=== PATIENT | male | born 1985 | race Caucasian/White ===

== ENCOUNTER 2018-09-07 16:42 | Inpatient (IN) ==
[2018-09-07] MEDS ORDERED: CLINDAMYCIN IM ONE (18:00)
--- NOTE | 2018-09-07 18:08 | PROVIDER DOCUMENTATION ---
HPI-Musculoskeletal Pain/Inj - GENERAL Chief Complaint: Extremity Pain Stated Complaint: ELBOW SWOLLEN Time Seen by Provider: 09/07/18 17:36 Source: patient - HX OF PRESENT ILLNESS-MUSKULOSKELTAL Nature of Presenting Problem: Patient is a 33yo M who presents w/ c/o L inner elbow pain, swelling, and rednes s that he noticed this morning. Denies any known injury. 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 Patient reports decreased ROM in L elbow d/t pain. Denies paresthesias, fever/chills, CP, or SOB. +2 L radial pulse. Non- toxic in appearance. Quality of Pain: reports: throbbing Severity in ED: moderate Onset/Duration: this morning Timing: still present Modifying Factors: worse with: movement, palpation Any recent injury?: No Locality of Occurance: Home Similar Symptoms Previously?: No Recently seen or treated by another doctor?: No - UPPER EXTREMITY PAIN/INJURY Extremities Pain Location: elbow: left Context / Method of Injury: reports: unknown Associated Symptoms: reports: denies symptoms Review of Systems - Adult - REVIEW OF SYSTEMS - ADULT Constitutional: reports: no symptoms reported. denies: chills, fever Eyes: reports: no symptoms reported. denies: decreased vision, blurred vision, double vision Ears, Nose, Mouth & Throat: reports: no symptoms reported Cardiovascular: reports: no symptoms reported. denies: chest pain, palpitations Respiratory: reports: no symptoms reported. denies: cough, dyspnea on exertion, shortness of breath Gastrointestinal: reports: no symptoms reported. denies: abdominal pain, nausea, vomiting Genitourinary: reports: no symptoms reported Musculoskeletal: reports: see HPI, joint pain, joint swelling. denies: back pain Integumentary: reports: see HPI Neurological: reports: no symptoms reported. denies: dizziness/vertigo, headache/migraines Psychiatric: reports: no symptoms reported Endocrine: reports: no symptoms reported Past History - Adult - PAST MEDICAL HISTORY-ADULT Review of Records: reports: Nursing Assessment Review, Medications Reviewed - IMMUNIZATION STATUS Childhood Immunizations: See Nurse Assessment Flu Vaccine: See Nurse Assessment - FAMILY HISTORY Family History: reviewed, not pertinent - SOCIAL HISTORY Smoking: cigarettes Provider spent 3-5 mins advising pt. on dangers of tobacco.: Discussed manners to quit use, and f/u contacts for add'l counseling. Substance Use: denies Physical Exam-Injury Related - Physical Exam-Injury Related Initial Vital Signs Reviewed: Yes General Appearance: alert, mild distress. negative: lethargic, slow to respond, obtunded Eyes: PERRL/EOMI, pink conjunctivae Head, Ears, Nose, Mouth & Throat: normocephalic/atraumatic, moist mucous membranes Neck: non-tender, full range of motion, supple, normal inspection. negative: C- spine tenderness, limited range of motion Respiratory: chest non-tender, lungs clear, normal breath sounds, no pleuratic chest pain, no respiratory distress, no accessory muscle use. negative: crackles, rales, rhonchi, stridor, wheezing Cardiovascular: normal peripheral pulses, no gallop Peripheral Pulses: radial (R): 2+, radial (L): 2+ Back Exam: normal inspection, no CVA tenderness, no vertebral tenderness Extremity: normal gait, no calf tenderness, normal capillary refill, pelvis stable, erythema (L antecubital space), swelling (L antecubital space), tenderness (L antecubital space) Integumentary: normal color, warm/dry, other (erythema, edema, and warmth to L antecubital space and healing wound with scab proximal to erythema). negative: cyanosis, jaundice, pallor Neurologic: grossly normal Psych/Mental Status: normal mood/affect, normal thought content, normal thought process, oriented x 3 Progress - PLAN OF CARE/RESULTS Progress/Plan/Lab Results: Vital Signs - 8 hr 09/07/18 16:49 09/07/18 18:52 Temperature 98.3 F 100.3 F H Pulse Rate 131 H 128 H Respiratory Rate 19 24 Blood Pressure 150/80 151/85 O2 Sat by Pulse Oximetry 95 100 Laboratory Results - last 24 hr 09/07/18 09/07/18 09/07/18 19:40 19:40 19:40 WBC 24.17 H RBC 5.14 Hgb 16.5 Hct 45.3 MCV 88.1 MCH 32.1 H MCHC 36.4 RDW Std Deviation 12.6 Plt Count 301 MPV 10.0 Immature Gran % (Auto) 0.4 Neut % (Auto) 87.3 H Lymph % (Auto) 4.4 L [place] % (Auto) 7.6 Eos % (Auto) 0.1 Baso % (Auto) 0.2 Immature Gran # (Auto) 0.10 H Neut # (Auto) 21.09 H Lymph # (Auto) 1.07 L [place] # (Auto) 1.84 H Eos # (Auto) 0.03 Baso # (Auto) 0.04 Segmented Neutrophils Not Reportable PT INR PTT (Actin FS) Sodium 131 L Potassium 3.2 L Chloride 95 L Carbon Dioxide 19 L Anion Gap 17 BUN 17 Creatinine 1.0 Estimated GFR/1.73 m2 > 60 BUN/Creatinine Ratio 17 Glucose 104 Calculated Osmolality 265 Calcium 9.0 Magnesium 1.5 Total Bilirubin 1.40 H AST 37 H ALT 38 Alkaline Phosphatase 98 Creatine Kinase 673 H Troponin T Total Protein 7.8 Albumin 4.6 Globulin 3.0 Albumin/Globulin Ratio 1.0 Plasma Lactate Urine Source Urine Color Urine Clarity Urine pH Ur Specific [place] Urine Protein Urine Ketones Urine Blood Urine Nitrite Urine Bilirubin Urine Urobilinogen Urine Microscopic RBC Urine WBC Urine Microscopic WBC Ur Epithelial Cells Urine Crystals Urine Bacteria Urine Casts Urine Yeast Urine Glucose Urine Opiates Screen Ur Oxycodone Screen Urine Methadone Screen U Propoxyphene Qual Ur Barbituates Screen Ur Tricyclics Screen Ur Phencyclidine Scrn Ur Amphetamines Screen U Methamphetamines Scrn U Benzodiazepines Scrn Urine Cocaine Screen U Cannabinoids Screen 09/07/18 09/07/18 09/07/18 19:40 19:40 20:43 WBC RBC Hgb Hct MCV MCH MCHC RDW Std Deviation Plt Count MPV Immature Gran % (Auto) Neut % (Auto) Lymph % (Auto) [place] % (Auto) Eos % (Auto) Baso % (Auto) Immature Gran # (Auto) Neut # (Auto) Lymph # (Auto) [place] # (Auto) Eos # (Auto) Baso # (Auto) Segmented Neutrophils PT 14.1 INR 1.04 PTT (Actin FS) 28.7 Sodium Potassium Chloride Carbon Dioxide Anion Gap BUN Creatinine Estimated GFR/1.73 m2 BUN/Creatinine Ratio Glucose Calculated Osmolality Calcium Magnesium Total Bilirubin AST ALT Alkaline Phosphatase Creatine Kinase Troponin T < 0.010 Total Protein Albumin Globulin Albumin/Globulin Ratio Plasma Lactate 1.7 Urine Source Urine Color Urine Clarity Urine pH Ur Specific [place] Urine Protein Urine Ketones Urine Blood Urine Nitrite Urine Bilirubin Urine Urobilinogen Urine Microscopic RBC Urine WBC Urine Microscopic WBC Ur Epithelial Cells Urine Crystals Urine Bacteria Urine Casts Urine Yeast Urine Glucose Urine Opiates Screen Ur Oxycodone Screen Urine Methadone Screen U Propoxyphene Qual Ur Barbituates Screen Ur Tricyclics Screen Ur Phencyclidine Scrn Ur Amphetamines Screen U Methamphetamines Scrn U Benzodiazepines Scrn Urine Cocaine Screen U Cannabinoids Screen 09/07/18 09/07/18 21:07 21:07 WBC RBC Hgb Hct MCV MCH MCHC RDW Std Deviation Plt Count MPV Immature Gran % (Auto) Neut % (Auto) Lymph % (Auto) [place] % (Auto) Eos % (Auto) Baso % (Auto) Immature Gran # (Auto) Neut # (Auto) Lymph # (Auto) [place] # (Auto) Eos # (Auto) Baso # (Auto) Segmented Neutrophils PT INR PTT (Actin FS) Sodium Potassium Chloride Carbon Dioxide Anion Gap BUN Creatinine Estimated GFR/1.73 m2 BUN/Creatinine Ratio Glucose Calculated Osmolality Calcium Magnesium Total Bilirubin AST ALT Alkaline Phosphatase Creatine Kinase Troponin T Total Protein Albumin Globulin Albumin/Globulin Ratio Plasma Lactate Urine Source CLEAN CATCH Urine Color KAYY Urine Clarity SL. CLOUDY A Urine pH 6.5 Ur Specific [place] 1.015 Urine Protein TRACE A Urine Ketones 3+(Large) A Urine Blood NEGATIVE Urine Nitrite NEGATIVE Urine Bilirubin NEGATIVE Urine Urobilinogen 4 Urine Microscopic RBC Not Reportable Urine WBC 1+ A Urine Microscopic WBC <10 Ur Epithelial Cells <10 Urine Crystals NONE SEEN Urine Bacteria 1+ Urine Casts NONE SEEN Urine Yeast NONE SEEN Urine Glucose TRACE(50 mg/dL) A Urine Opiates Screen PRESUMPTIVE POSITIVE A Ur Oxycodone Screen NONE DETECTED Urine Methadone Screen NONE DETECTED U Propoxyphene Qual NONE DETECTED Ur Barbituates Screen NONE DETECTED Ur Tricyclics Screen NONE DETECTED Ur Phencyclidine Scrn NONE DETECTED Ur Amphetamines Screen PRESUMPTIVE POSITIVE A U Methamphetamines Scrn PRESUMPTIVE POSITIVE A U Benzodiazepines Scrn NONE DETECTED Urine Cocaine Screen PRESUMPTIVE POSITIVE A U Cannabinoids Screen PRESUMPTIVE POSITIVE A Orders Category Date Time Status Cardiac Monitoring DIRECTED Care 09/07/18 21:40 Active Notify MD of + Sepsis Screen NOW Care 09/07/18 21:40 Active Notify Physician As Ordered Care 09/07/18 21:40 Active Repeat Vital Signs .Blood Pressure Care 09/07/18 18:06 Active Repeat Vital Signs .Heart Rate Care 09/07/18 18:05 Active Saline Loc NOW Care 09/07/18 20:12 Active Wound [ED: Wound Care/Dressing Change] NOW Care 09/07/18 18:10 Active CHEST-1 VIEW [RAD] Stat Exams 09/07/18 21:40 Ordered ELBOW COMPLETE LEFT [RAD] Stat Exams 09/07/18 17:18 Completed BLOOD CULTURE [BLDCUL] Stat Lab 09/07/18 21:56 Ordered CBC WITH ELECTRONIC DIFF [HEME] Stat Lab 09/07/18 19:40 Completed CK PROFILE [SP CHEM] Stat Lab 09/07/18 19:40 Results COMPREHENSIVE METABOLIC PANEL [CHEM] Stat Lab 09/07/18 19:40 Completed LACTATE, PLASMA [CHEM] Lab 09/08/18 00:00 Uncollected LACTATE, PLASMA [CHEM] Lab 09/08/18 03:00 Uncollected LACTATE, PLASMA [CHEM] Stat Lab 09/07/18 20:43 Completed MAGNESIUM [CHEM] Stat Lab 09/07/18 19:40 Results PROTIME WITH INR [COAG] Stat Lab 09/07/18 19:40 Completed PTT [COAG] Stat Lab 09/07/18 19:40 Completed TROPONIN T Stat Lab 09/07/18 19:[address] W/POSS RFLX CULT [URINALYSIS] Stat Lab 09/07/18 21:07 Completed URINE CULTURE [RM] Routine Lab 09/07/18 21:28 Received UR[address] DRUG SCREEN [address] Stat Lab 09/07/18 21:07 Completed 0.9% Sodium Chloride Inj [Ns] 1,000 ml Med 09/07/18 22:06 Active IV 999 mls/hr Acetaminophen [Tylenol] Med 09/07/18 21:49 Discontinued 1,000 mg PO NOW ONE Clindamycin Med 09/07/18 18:00 Discontinued 600 mg IM NOW ONE Ketorolac [Toradol] Med 09/07/18 20:14 Discontinued 30 mg IM NOW ONE Potassium Chloride E.r. [Micro-K] Med 09/07/18 22:06 Discontinued 20 meq PO NOW ONE Oxygen Device Stat Oth 09/07/18 21:40 Active EKG [EKG] Stat Ther 09/07/18 21:28 Ordered Plan of care discussed with patient who verbalizes understanding. Border of erythema circled by RN. Patient denies illicit drug usage, however d/t location of wound/cellulitis in the AC and numerous positive substances on drug screen, possible concern for wound obtained via IV drug usage. Patient tachycardia in triage. Vital signs rechecked and HR 128 bpm. Mildly febrile (100.3). WBC elevated. Discussed with patient admission for IV antibiotics d/t leukocytosis and tachycardia. Patient agrees. Result Diagrams: 09/07/18 19:40 09/07/18 19:40 - XRAY 1 XRAY: Left XRAY Study: Elbow Impression: See EMR Report ([facility] - [address] , [address], [place] [address] [facility] - [address] [place] [address] Department of Imaging Patient: RAUL HAAS WADM Date: 09/07/18#: [id number] : 1985ADM Status: REG ERAt#: [id number] Age/Sex: 33/MRoom/Bed: Loc: P.ED Ordering Physician: Nel Smith Family Physician: Gwendolyn Mobley MD Reason for Procedure: pain/swelling Signed EXAM: ELBOW COMPLETE LEFT INDICATION: pain/swelling TECHNIQUE: 3 views COMPARISON: None. FINDINGS: There is no discrete fracture, dislocation, or significant intrinsic osseous lesion. The visualized joint spaces are essentially unremarkable. The surrounding soft tissues are essentially unremarkable. IMPRESSION: No evidence of acute osseous abnormality. Electronically signed by Lon Lange 09/07/2018 7:10 PM 09/07/181909 Interpreting Physician: Lon Lange MD Dictated Date/Time: 09/07/181909 cc: Nel Smith; Gwendolyn Mobley MD) - CONSULTS/PCP/HOSPITALIST Notification #1 *Consult/PCP/Hospitalist*: aNvid Shukla Time Discussed: 22:25 Reason/Comments: Cellulitis; leukocytosis; tachycardia Consult Disposition: Admit Departure - Departure Date of Disposition Decision: 09/07/18 Time of Disposition Decision: 22:29 DIAGNOSIS: Cellulitis of antecubital fossa, Tachycardia, Hyponatremia, Hypokalemia, Substance abuse Leukocytosis Qualifiers: Leukocytosis type: unspecified Qualified Code(s): D72.829 - Elevated white blood cell count, unspecified Disposition: ADMITTED INPATIENT 09 Certified Medical Emergency: Emergent Condition: Stable Referrals and Follow-Ups: Gwendolyn Mobley MD [Primary Care Provider] - - Critical Care Note This patient required my direct & personal management of CC.: No Attestation - Physician/ VIDHYA Attestation Patient care was provided by Advanced Practice Provider:: Yes Advanced Practice Provider:: Nel Smith Advanced Practice Provider documentation review:: The Mid-level provider documentation, treatment plan and medical decision making was reviewed by the physician who agrees with all treatment and medical decision making by the MLP. The physician spent face to face time with patient:: No Advanced Practice Provider documentation review:: Supervising physician onsite and consulted in the evaluation and care of this patient. The physician did not have a face to face encounter with the patient.
--- NOTE | 2018-09-07 19:12 | Diag Imaging Result Doc PS360 ---
EXAM: ELBOW COMPLETE LEFT INDICATION: pain/swelling TECHNIQUE: 3 views COMPARISON: None. FINDINGS: There is no discrete fracture, dislocation, or significant intrinsic osseous lesion. The visualized joint spaces are essentially unremarkable. The surrounding soft tissues are essentially unremarkable. IMPRESSION: No evidence of acute osseous abnormality. Electronically signed by Lon Lange 09/07/2018 7:10 PM
[2018-09-07 20:10] LABS: BASO# 0.04 X1000 (0.0-0.2); BASO% 0.2 % (0.0-0.8); EOS# 0.03 X1000 (0.0-0.7); EOS% 0.1 % (0.0-10.0); HEMATOCRIT 45.3 % (42.0-52.0); HEMOGLOBIN 16.5 g/dL (14.0-18.0); IMM GRAN% 0.4 % (0.0-0.5); LYMPH# 1.07 X1000 (1.2-3.4); LYMPH% 4.4 % (20.5-51.1); MCH 32.1 PG (27-31); MCHC 36.4 g/dL (33-37); MCV 88.1 FL (81-99); MONO# 1.84 X1000 (0.11-0.59); MONO% 7.6 % (1.7-9.3); NEUT# 21.09 X1000 (1.4-6.5); NEUT% 87.3 % (42.2-75.2); PLT 301 X1000 (130-400); RBC 5.14 XMIL (4.7-6.1); RDW 12.6 % (11.5-14.5); WBC 24.17 X1000 (4.8-10.8)
[2018-09-07] MEDS ORDERED: TORADOL IM ONE (20:14)
[2018-09-07 21:10] LABS: AGAP 17; ALBUMIN 4.6 g/dL (3.5-5.0); ALKALINE PHOSPHATASE 98 U/L (32-122); BUN 17 mg/dL (8-22); CHLORIDE 95 mmol/L (98-107); COSMO 265; ESTIMATED GFR > 60; GLUCOSE 104 mg/dL (70-104); GOT 37 U/L (10-34); GPT 38 U/L (10-44); POTASSIUM 3.2 mmol/L (3.5-5.1); SODIUM 131 mmol/L (136-145); TCO2 19 mmol/L (25-35); TOTAL PROTEIN 7.8 g/dL (6.3-8.3)
[2018-09-07 21:22] LABS: BILIRUBIN URINE NEGATIVE (NEGATIVE); BLOOD URINE NEGATIVE (NEGATIVE); CLARITY SL. CLOUDY (CLEAR); COLOR AMBER; KETONE URINE 3+(Large) mg/dL (NEGATIVE); LEUKOCYTES URINE 1+ (NEGATIVE); NITRITE URINE NEGATIVE (NEGATIVE); PH URINE 6.5; PROTEIN URINE TRACE mg/dL (NEGATIVE); SP GRAVITY URINE 1.015; UROBILINOGEN URINE 4 mg/dL
[2018-09-07 21:28] LABS: URINE BACTERIA 1+ /HFP; URINE CAST NONE SEEN /LPF; URINE CRYSTAL NONE SEEN /HPF; URINE EPITHELIAL CELLS <10 /HPF (<10); URINE SOURCE CLEAN CATCH; URINE WBC <10 /HPF (<10); URINE YEAST NONE SEEN /HPF
[2018-09-07 21:41] LABS: UR AMPHETAMINES QUAL PRESUMPTIVE POSITIVE (NONE DETECT); UR BARBITUATES QUAL NONE DETECTED (NONE DETECT); UR BENZODIAZEPIN QUAL NONE DETECTED (NONE DETECT); UR CANNABINOIDS QUAL PRESUMPTIVE POSITIVE (NONE DETECT); UR COCAINE QUAL PRESUMPTIVE POSITIVE (NONE DETECT); UR METHADONE QUAL NONE DETECTED (NONE DETECT); UR METHAMPHETAMINE QUAL PRESUMPTIVE POSITIVE (NONE DETECT); UR OPIATES QUAL PRESUMPTIVE POSITIVE (NONE DETECT); UR OXYCODONE QUAL NONE DETECTED (NONE DETECT); UR PCP QUAL NONE DETECTED (NONE DETECT); UR PROPOXYPHENE QUAL NONE DETECTED (NONE DETECT); UR TCA QUAL NONE DETECTED (NONE DETECT)
[2018-09-07] MEDS ORDERED: TYLENOL PO ONE (21:49)
[2018-09-07 21:57] LABS: INR 1.04; PROTIME 14.1 Seconds (11.0-16.0); PTT 28.7 Seconds (22.3-41.8)
[2018-09-07 22:03] LABS: MAGNESIUM 1.5 mg/dL (1.5-2.7)
[2018-09-07] MEDS ORDERED: NS 1,000 ML IV ONE (22:06)
[2018-09-07] MEDS ORDERED: MICRO-K PO ONE (22:06)
[2018-09-07 22:45] LABS: CK INDEX 0.6 (0.0-2.5); CK-MB 4.04 ng/mL (0.0-5.0)
[2018-09-07] MEDS ORDERED: TYLENOL PO PRN (23:32)
[2018-09-07] MEDS ORDERED: VANCOMYCIN 1 GM/NS 1 GM/250 ML IVPB IV ONE (23:33)
[2018-09-07] MEDS ORDERED: ZOSYN 3.375 GM in NS 50 ML IV ONE (23:33)
[2018-09-07] MEDS ORDERED: KLOR-CON PO ONE (23:34)
[2018-09-07] MEDS: NS 1,000 ML IV ONE (23:49)
[2018-09-08 03:32] LABS: BASO# 0.04 X1000 (0.0-0.2); BASO% 0.2 % (0.0-0.8); EOS% 0.8 % (0.0-10.0); HEMATOCRIT 41.8 % (42.0-52.0); HEMOGLOBIN 15.2 g/dL (14.0-18.0); IMM GRAN% 0.4 % (0.0-0.5); LYMPH# 1.04 X1000 (1.2-3.4); LYMPH% 4.4 % (20.5-51.1); MCH 32.1 PG (27-31); MCHC 36.4 g/dL (33-37); MCV 88.4 FL (81-99); MONO# 1.13 X1000 (0.11-0.59); MONO% 4.7 % (1.7-9.3); MPV 9.6 FL (7.4-10.4); NEUT# 21.36 X1000 (1.4-6.5); NEUT% 89.5 % (42.2-75.2); PLT 249 X1000 (130-400); RBC 4.73 XMIL (4.7-6.1); RDW 12.7 % (11.5-14.5); WBC 23.87 X1000 (4.8-10.8)
[2018-09-08 05:17] LABS: AGAP 15; ALKALINE PHOSPHATASE 83 U/L (32-122); BUN 25 mg/dL (8-22); CALCIUM 8.3 mg/dL (8.8-10.2); CHLORIDE 97 mmol/L (98-107); COSMO 270; CREATININE 1.3 mg/dL (0.7-1.2); ESTIMATED GFR > 60; GLUCOSE 120 mg/dL (70-104); GOT 28 U/L (10-34); GPT 30 U/L (10-44); POTASSIUM 3.6 mmol/L (3.5-5.1); SODIUM 132 mmol/L (136-145); TCO2 20 mmol/L (25-35); TOTAL PROTEIN 6.2 g/dL (6.3-8.3)
[2018-09-08] MEDS ORDERED: ZOFRAN IV PRN (06:51)
[2018-09-08] MEDS ORDERED: VANCOMYCIN IV PER PHARMACY MISC SCH (07:00)
[2018-09-08] MEDS: NORCO-10 PO PRN ×3 (07:19→21:02)
--- NOTE | 2018-09-08 07:24 | Diag Imaging Result Doc PS360 ---
EXAM: CHEST-1 VIEW - 09/07/2018 HISTORY: Sepsis TECHNIQUE: One view chest COMPARISON: None. FINDINGS: Inspiration is mildly shallow. Allowing for inspiration and the AP projection, heart size appears upper normal. The lungs appear clear. There is no pleural effusion or pneumothorax identified. IMPRESSION: Mildly shallow inspiration. No other evidence of acute disease. Electronically signed by Devin Gaxiola 09/08/2018 7:22 AM
[2018-09-08] MEDS ORDERED: VANCOMYCIN 1 GM/NS 1 GM/250 ML IVPB IV ONE (09:00)
[2018-09-08] MEDS: ZOSYN 3.375 GM in NS 50 ML IV SCH ×3 (09:13→21:03)
[2018-09-08] MEDS: NS 1,000 ML IV ONE (09:14)
[2018-09-08] MEDS: NS 1,000 ML IV SCH ×2 (10:21→15:34)
--- NOTE | 2018-09-08 11:13 | HISTORY AND PHYSICAL ---
CHIEF COMPLAINT: Pain and swelling to the left antecubital space. HISTORY OF PRESENT ILLNESS: This is a 33-year-old gentleman who presented to the emergency room complaining of left arm pain and swelling. He states that he burnt his antecubital area while welding a week ago. During this time, he has developed increasing pain, swelling and redness, prompting his evaluation. He was found to have cellulitis to this area. Elbow x-ray revealed no evidence of acute osseous abnormality. Blood cultures were drawn. He was given vancomycin and Zosyn, and admitted for further evaluation and treatment. PAST MEDICAL HISTORY: He denies. PAST SURGICAL HISTORY: Denies. SOCIAL HISTORY: He drinks alcohol daily. He does use recreational drugs "quite often". ALLERGIES: No known drug allergies. HOME MEDICATIONS: None. REVIEW OF SYSTEMS: Discussed with patient with pertinent positives stated in the HPI. He denied any syncope or dizziness, any chest pain, palpitations, shortness of breath, cough, fever, chills, any night sweats, recent weight loss or weight gain, any nausea, vomiting, diarrhea, constipation, black or bloody vomitus or stools, hematuria, dysuria, frequency or urgency. PHYSICAL EXAMINATION: GENERAL: This is a 33-year-old gentleman who is sitting up at the bedside in the med/surg room in no distress. VITAL SIGNS: Blood pressure 150/90, respirations are 17, temperature is 99.2 degrees oral with heart rates that are ranging 100 to 108. Room air sats are 98 to 100%. EYES: Pupils are equal, round, and react to light. EOMs are intact. Sclerae are anicteric. HEENT: Head is normocephalic, atraumatic. Mucous membranes are moist. NECK: Supple with trachea midline. CARDIOVASCULAR: Regular rate and rhythm. He is tachycardic. S1 and S2 appreciated. No murmurs. Calves are nontender bilateral with peripheral pulses palpable x4 extremities. PULMONARY: Breath sounds are clear. No increased work of breathing noted. Chest rises and falls symmetric respiration. Chest wall is nontender to palpation. GASTROINTESTINAL: Abdomen is soft, nontender, and nondistended. Bowel sounds in all 4 quadrants. GENITOURINARY: He has no CVA or suprapubic tenderness. NEUROLOGIC: He is alert and oriented x3. SKIN: Warm and dry. Erythema is noted and swelling to his left antecubital space with good positive PMS noted to right hand and fingers. Capillary refill is less than 10 to his left hand. Less than 3 seconds noted to his left hand. LABORATORY: WBC 24.1 with hemoglobin 16.5, hematocrit 45.3, platelets of 301,000. Sodium 131, potassium 3.2, BUN 17, creatinine 1 with a glucose of 104. Urinalysis is essentially negative. Urine drug screen is presumptive positive for opiates, amphetamines, methamphetamines, cocaine and cannabinoids. Left elbow x-ray reveals no acute osseous abnormality. Blood cultures are pending. ASSESSMENT AND PLAN: 1. Cellulitis left elbow. Blood cultures have been drawn. Vancomycin and Zosyn will be given. Further antibiotics will be culture driven. 2. History of polysubstance abuse. Urine drug screen as stated above. We will monitor on telemetry. Monitor vital signs and look for signs of withdrawal. As stated, the patient denies any IV drug use now, although he has in the past. If cultures return positive, then we will need an echocardiogram to look for endocarditis. 3. Alcohol use and abuse. He states that he drinks daily, although we are unsure when his last drink was. We will monitor for signs of any withdrawal or DTs. 4. Leukocytosis secondary to #1. We will trend labs and continue antibiotics. 5. Hyponatremia. We will continue with IV fluid. 6. Hyperkalemia resolved. Further treatments pending hospital course. Plan was discussed with Dr. Barry. Dictated by ROSA Koroma for Willian Barry MD cc: ROSA Koroma MD
[2018-09-08] MEDS: TYLENOL PO PRN (21:01)
--- NOTE | 2018-09-08 21:39 | HISTORY AND PHYSICAL ---
ADDENDUM: Patient seen and examined by myself. Full note dictated and discussed with nurse practitioner. Patient presented to the hospital with left elbow pain and swelling with erythema. He was diagnosed with cellulitis at the antecubital fossa. He was noted to have hyponatremia as well as hypokalemia. Both of these will be replaced. His white count was elevated at 23 and his urine drug screen was positive for multiple substances. We will follow the patient. He does have an early sepsis with elevated white count, tachycardia, and low grade fevers. We will admit to the hospital, IV fluids, antibiotics, pain control, and will follow. cc: Willian Barry MD
[2018-09-09] MEDS: NORCO-10 PO PRN (01:26)
[2018-09-09] MEDS: ZOSYN 3.375 GM in NS 50 ML IV SCH ×4 (01:27→21:15)
[2018-09-09] MEDS ORDERED: VANCOMYCIN 1,350 MG in NS 250 ML IV SCH (03:00)
[2018-09-09] MEDS: NS 1,000 ML IV SCH ×2 (03:22→21:16)
[2018-09-09 07:10] LABS: AGAP 11; ALBUMIN 3.1 g/dL (3.5-5.0); BUN 11 mg/dL (8-22); CALCIUM 8.1 mg/dL (8.8-10.2); CHLORIDE 104 mmol/L (98-107); COSMO 272; CREATININE 0.9 mg/dL (0.7-1.2); ESTIMATED GFR > 60; GLUCOSE 103 mg/dL (70-104); PHOSPHORUS 1.8 mg/dL (2.7-4.5); POTASSIUM 3.4 mmol/L (3.5-5.1); SODIUM 136 mmol/L (136-145); TCO2 21 mmol/L (25-35)
[2018-09-09 07:35] LABS: BASO# 0.02 X1000 (0.0-0.2); BASO% 0.1 % (0.0-0.8); EOS# 0.32 X1000 (0.0-0.7); EOS% 1.8 % (0.0-10.0); HEMATOCRIT 40.7 % (42.0-52.0); HEMOGLOBIN 14.3 g/dL (14.0-18.0); IMM GRAN# 0.06 X1000 (0.0-0.04); IMM GRAN% 0.3 % (0.0-0.5); LYMPH% 5.7 % (20.5-51.1); MCH 32.1 PG (27-31); MCHC 35.1 g/dL (33-37); MCV 91.3 FL (81-99); MONO# 0.86 X1000 (0.11-0.59); MONO% 4.9 % (1.7-9.3); MPV 10.6 FL (7.4-10.4); NEUT# 15.28 X1000 (1.4-6.5); NEUT% 87.2 % (42.2-75.2); PLT 208 X1000 (130-400); RBC 4.46 XMIL (4.7-6.1); RDW 12.9 % (11.5-14.5); WBC 17.54 X1000 (4.8-10.8)
[2018-09-09] MEDS: DILAUDID IV PRN ×4 (08:45→21:15)
[2018-09-09 09:19] LABS: LYMPHS 6 % (21-51); MONO 4 % (1-9); SEGS 90 % (42-75)
[2018-09-09] MEDS: VANCOMYCIN 1,350 MG in NS 250 ML IV SCH (16:48)
[2018-09-09] MEDS: TYLENOL PO PRN (17:28)
[2018-09-09] MEDS: NICODERM PATCH TD PRN (18:34)
--- NOTE | 2018-09-09 20:15 | PROGRESS NOTE ---
DATE: 09/09/2018 SUBJECTIVE: Patient notes that his left arm is hurting quite severely. States that he was crying some during the night. Denies any fevers or chills. PHYSICAL EXAMINATION: Vital signs: Temperature 99.1 degrees, pulse 95, respiratory rate 18, BP 131/66. General: Patient is in obvious pain. He is refusing to move his elbow unless completely necessary. HEENT: Normocephalic. Neck: Supple. Cardiovascular: Regular rate. Chest: Clear. Abdomen: Soft, nondistended. Extremities: Moves all extremities with the exception of left elbow, left upper extremity, which is swollen, red, tender and quite painful to touch. He has no other rashes noted. Neurologic: No focal changes. ASSESSMENT: 1. Cellulitis, left elbow, currently on vancomycin and Zosyn. 2. History of polysubstance abuse as noted with abnormal urine drug screen. 3. Acute renal insufficiency. Creatinine is increased to 1.3 today. This could be from his vancomycin. We will continue to follow. Recheck in the a.m. 4. Leukocytosis. 5. Chronic alcohol use. We will continue to follow. 6. Hyponatremia. cc: Willian Barry MD
--- NOTE | 2018-09-09 20:54 | GENERAL SURGERY CONSULTATION ---
DATE: 09/09/2018 HISTORY OF PRESENT ILLNESS: This is a 33-year-old gentleman who has a history of intravenous drug abuse. He was admitted after using intravenous methamphetamine this weekend with pain, erythema and swelling of his arm. He has been admitted for IV antibiotics. MEDICAL HISTORY: Negative. SURGICAL HISTORY: Negative. SOCIAL HISTORY: IV drugs, heavy user 2 years ago. Says he has fallen off the wagon recently, alcohol daily. Denies any office notes. REVIEW OF SYSTEMS: Ten-point negative. FAMILY HISTORY: Reviewed, noncontributory. MEDICATIONS: Negative. PHYSICAL EXAMINATION: Vital signs: He is febrile to 102.4, pulse is 118, blood pressure 137/77, oxygen saturation 99%. General: Alert. He appears uncomfortable but in no acute distress. HEENT: No scleral icterus. No cervical mass. Cardiovascular: Normal rhythm with sinus tachycardia. Pulmonary: No increased work of breathing. Abdomen: Soft. Skin: Warm, dry. Psychiatric: Appropriate affect. Peripheral vascular: He has palpable radial pulses bilaterally. His hand is well perfused. Musculoskeletal exam: Shows demarcation of erythema with some induration and edema of his left upper arm. I do not see any palpable cords. There is no fluctuance or necrosis. No crepitus. Lower extremities are well perfused. LABORATORY DATA: White count 17, hematocrit is 40. His white count down from 24 on admission. Creatinine is 0.9, glucose 103. UDS was positive for amphetamines, cocaine and opiates. He has had an elbow x-ray that shows no osseous abnormalities. Chest x-ray shows no acute disease. ASSESSMENT AND PLAN: A 33-year-old gentleman with cellulitis in the left upper extremity. I would recommend continuation of broad-spectrum antibiotics. I do not appreciate any abscess or fluctuance and no evidence of necrotizing process. It is possible that this is more of a chemical type inflammation here, but we will keep the arm elevated, IV antibiotics, and we will evaluate for development of abscess in the future. cc: Prakash Killian MD
[2018-09-10] MEDS: DILAUDID IV PRN ×5 (02:32→20:59)
[2018-09-10] MEDS: ZOSYN 3.375 GM in NS 50 ML IV SCH ×4 (02:36→20:59)
[2018-09-10] MEDS: NS 1,000 ML IV SCH ×3 (02:38→14:33)
[2018-09-10] MEDS: VANCOMYCIN 1,350 MG in NS 250 ML IV SCH (03:23)
[2018-09-10] MEDS: TYLENOL PO PRN (05:18)
[2018-09-10 06:36] LABS: BASO# 0.02 X1000 (0.0-0.2); BASO% 0.1 % (0.0-0.8); EOS# 0.28 X1000 (0.0-0.7); EOS% 1.8 % (0.0-10.0); HEMATOCRIT 37.7 % (42.0-52.0); HEMOGLOBIN 13.2 g/dL (14.0-18.0); IMM GRAN# 0.04 X1000 (0.0-0.04); IMM GRAN% 0.3 % (0.0-0.5); LYMPH# 1.36 X1000 (1.2-3.4); LYMPH% 8.5 % (20.5-51.1); MCH 31.7 PG (27-31); MCV 90.6 FL (81-99); MONO# 0.99 X1000 (0.11-0.59); MONO% 6.2 % (1.7-9.3); MPV 10.3 FL (7.4-10.4); NEUT# 13.28 X1000 (1.4-6.5); NEUT% 83.1 % (42.2-75.2); PLT 213 X1000 (130-400); RBC 4.16 XMIL (4.7-6.1); RDW 12.5 % (11.5-14.5); WBC 15.97 X1000 (4.8-10.8)
[2018-09-10 06:48] LABS: AGAP 11; ALBUMIN 2.9 g/dL (3.5-5.0); BUN 9 mg/dL (8-22); CALCIUM 7.8 mg/dL (8.8-10.2); CHLORIDE 102 mmol/L (98-107); COSMO 272; ESTIMATED GFR > 60; GLUCOSE 148 mg/dL (70-104); PHOSPHORUS 2.7 mg/dL (2.7-4.5); POTASSIUM 3.2 mmol/L (3.5-5.1); SODIUM 135 mmol/L (136-145); TCO2 22 mmol/L (25-35)
[2018-09-10] MEDS ORDERED: KLOR-CON PO ONE (06:55)
[2018-09-10] MEDS: SOLU-MEDROL IV SCH ×2 (09:42→15:53)
[2018-09-10] MEDS: VANCOMYCIN 1,800 MG in NS 500 ML IV SCH (15:54)
[2018-09-10] MEDS: NICODERM PATCH TD PRN (19:06)
--- NOTE | 2018-09-10 20:01 | PROGRESS NOTE ---
DATE: 09/10/2018 SUBJECTIVE: Patient finally admits today that he did actually inject into his left arm. Notes that he had been clean for quite some time and had a bad day and did this over the weekend. OBJECTIVE: T-max 100.4 degrees, pulse 118, respiratory 20, BP 178/77.General: Patient is awake, alert male who is currently distraught emotionally. He still is in pain obviously as well. HEENT: Normocephalic. Neck: Supple. Cardiovascular: Regular rate. No murmurs. Chest: Clear, nonlabored. Abdomen: Soft, nondistended. Extremities: Moves all extremities. Still has marked swelling and edema as well as erythema and warmth of his left upper extremity from his elbow to his wrist. ASSESSMENT: 1. Cellulitis. 2. Drug use. 3. Hypertension. 4. Tachycardia. 5. Depression. 6. Acute stress disorder. 7. Chronic alcohol use. 8. Leukocytosis, improved. 9. Hypokalemia. 10. Acute renal insufficiency, improved. 11. Hyponatremia, improved. PLAN: We will continue patient in the hospital, IV fluids, antibiotics, pain control. At this point, we are going to try steroids and see if this will help with the inflammatory process. cc: Willian Barry MD
[2018-09-10] MEDS ORDERED: ATARAX PO PRN (22:57)
[2018-09-11] MEDS: SOLU-MEDROL IV SCH ×3 (01:23→17:26)
[2018-09-11] MEDS: ZOSYN 3.375 GM in NS 50 ML IV SCH ×4 (01:23→21:10)
[2018-09-11] MEDS: NS 1,000 ML IV SCH ×2 (02:36→15:47)
[2018-09-11] MEDS: VANCOMYCIN 1,800 MG in NS 500 ML IV SCH ×2 (02:45→16:15)
[2018-09-11] MEDS ORDERED: BENADRYL PO PRN (03:22)
--- NOTE | 2018-09-11 05:45 | GENERAL SURGERY PROGRESS NOTE ---
DATE: 09/11/2018 SUBJECTIVE: The patient seems to be doing okay. No major issues. OBJECTIVE: Vital signs: The patient is currently afebrile. His vital signs are stable. General: No acute distress. Cardiovascular: Regular rate and rhythm. Lungs: Grossly clear. Abdomen: Soft, nontender, nondistended. Extremities: Area previously described looks overall improved. I do not see any drainable abscess. LABORATORY DATA: Laboratory reviewed from yesterday, white blood cell count is 15, which is decreasing. ASSESSMENT AND PLAN: A 33-year-old with arm abscess. At this time, continue current treatment. Continue antibiotics. No surgical intervention planned at this time. cc: Lit Stevens MD
[2018-09-11] MEDS: NORCO-10 PO PRN ×3 (12:06→21:10)
--- NOTE | 2018-09-11 21:24 | PROGRESS NOTE ---
DATE: 09/11/2018 SUBJECTIVE: Patient notes he is still having lots of pain in his arm, although he has been able to decrease his pain medication usage slightly. Denies any fevers. He is unsure if the swelling is any better. OBJECTIVE: Vital Signs: Temperature 97.8 degrees, pulse 81, respiratory rate 18, BP 147/79. General: Patient is in no current distress, although he is still somewhat in pain, but he appears to be in less pain than previous. HEENT: Normocephalic. Neck: Supple. Cardiovascular: Regular rate. Chest: Clear and nonlabored. Abdomen: Soft and nondistended. Extremities: Moves all extremities. Skin: His upper left extremity from the elbow to the wrist is still edematous, erythematous, warm to the touch, and still indurated, although it does appear to be slightly improved today than yesterday. We will continue the antibiotics, steroids, and pain control. His white count is improving. It has dropped from 23 down to 15. Creatinine is back to normal. We will replace his potassium. cc: Willian Barry MD
[2018-09-12] MEDS: ZOSYN 3.375 GM in NS 50 ML IV SCH ×4 (02:45→20:24)
[2018-09-12] MEDS: SOLU-MEDROL IV SCH ×2 (02:45→16:01)
[2018-09-12] MEDS: VANCOMYCIN 1,800 MG in NS 500 ML IV SCH (05:09)
[2018-09-12 06:22] LABS: RBC 3.95 XMIL (4.7-6.1); WBC 13.71 X1000 (4.8-10.8)
[2018-09-12 06:23] LABS: HEMATOCRIT 36.6 % (42.0-52.0); HEMOGLOBIN 12.4 g/dL (14.0-18.0); MCH 31.4 PG (27-31); MCHC 33.9 g/dL (33-37); MCV 92.7 FL (81-99); MPV 10.4 FL (7.4-10.4)
[2018-09-12 06:32] LABS: AGAP 9; ALKALINE PHOSPHATASE 111 U/L (32-122); BUN 11 mg/dL (8-22); CHLORIDE 108 mmol/L (98-107); COSMO 285; CREATININE 0.7 mg/dL (0.7-1.2); ESTIMATED GFR > 60; GLUCOSE 173 mg/dL (70-104); GOT 54 U/L (10-34); GPT 82 U/L (10-44); POTASSIUM 3.7 mmol/L (3.5-5.1); SODIUM 141 mmol/L (136-145); TCO2 24 mmol/L (25-35); TOTAL PROTEIN 6.1 g/dL (6.3-8.3)
[2018-09-12] MEDS: NS 1,000 ML IV SCH (10:35)
[2018-09-12] MEDS: NORCO-10 PO PRN ×2 (11:46→16:09)
[2018-09-12] MEDS: DILAUDID IV PRN (20:25)
--- NOTE | 2018-09-12 21:04 | PROGRESS NOTE ---
DATE: 09/12/2018 SUBJECTIVE: Patient notes he is feeling better. His left arm pain is improving. He has not had to have any IV pain medication. PHYSICAL: Temperature 97.8, pulse 81, respiratory 18, BP 147/79.General: Patient is awake, he is in no distress. HEENT: Normocephalic. Neck: Supple. Cardiovascular: Regular rate. Chest: Clear nonlabored. Abdomen: Soft, nondistended. Extremities: Moves all extremities. Skin: His left upper extremity from his elbow to his wrist has improved, still has indurated area around his elbow but is much softer much less tender around his wrist. ASSESSMENT: 1. Cellulitis left upper extremity. We will stop his vancomycin, continue Zosyn and Solu-Medrol . 2. History of polysubstance abuse. 3. Alcohol use and abuse stable . 4. Leukocytosis improving. PLAN: Hopefully patient will continue to improve off of vancomycin and can be discharged home tomorrow. cc: Willian Barry MD
[2018-09-13] MEDS: DILAUDID IV PRN (02:30)
[2018-09-13] MEDS: SOLU-MEDROL IV SCH (03:52)
[2018-09-13] MEDS: ZOSYN 3.375 GM in NS 50 ML IV SCH ×2 (03:52→09:09)
[2018-09-13 07:47] VITALS: BP 161/87
--- NOTE | 2018-09-13 15:18 | DISCHARGE SUMMARY ---
ADMISSION DATE: 09/07/2018 DISCHARGE DATE: 09/13/2018 CONSULTATIONS: Surgery. PROCEDURES: None. BRIEF HOSPITAL COURSE: The patient is a 33-year-old gentleman who unfortunately had an extensive cellulitis and indurated area from his elbow to his wrist on admission. This was most likely inflammatory from an injection site. The patient was initially placed on antibiotics. Surgery was consulted and agreed that the area could not be drained. We continued him on antibiotics for 2 more days. His white count improved, although his symptoms only gradually improved. We started him on high-dose steroids. He remained afebrile. Blood count remained good. He continued to improve. His pain was improving. He was able to stop needing IV pain medication. He was able to start moving his wrist and then subsequently his elbow. On discharge, the patient still has an indurated area around his medial epicondyle. However, it is much less tender. DISPOSITION: Patient will be discharged home. He will continue a steroid Dosepak, continue Keflex for the next 5 days. He will follow up with primary care of his choice if symptoms worsen or return. cc: Willian Barry MD
== END 2018-09-13 11:46 | disposition home or self-care (01) | DRG 603 ==
LOC: P.ED 16:42 → SUATTDRO 16:43 → P.MEDSURG 22:54
PROVIDERS: ATTEND Family Medicine
CPT/HCPCS: 71010; 71045; 73080; 80053; 80069; 80104; 80202; 80301; 80305; 81001; 82550; 82553; 83605; 83735; 84484; 85025; 85027; 85610; 85730; 87040; 87088; 93005; 94761; 96372; 99285; A9270; G0431; G0434; G0477; J1170; J1885; J2405; J2543; J2920; J2930; J3370; J7030; J7040; J7050; S0077